=== PATIENT | male | born 1965 | race Caucasian/White ===

== ENCOUNTER 2016-09-10 09:30 | Observation (INO) | payer OTHER ==
[~2016-09-10] VITALS: Ht 190.5 cm; Wt 115.2 kg
--- NOTE | ~2016-09-10 | DS ---
PATIENT'S NAME: TYRON PRAKASH [facility] AGE: 51 Y [address] ROOM: [place] [address] LOCATION: [facility] – [place] ADMIT DATE: 09/10/2016 Discharge Summary DISCHARGE DATE: 09/13/2016 FAMILY PHYSICIAN: Joseph Arnold MD ATTENDING PHYSICIAN: Joseph Arnold FINAL DIAGNOSIS: Cellulitis left face and left naris probable methicillin- resistant Staphylococcus aureus. HOSPITAL COURSE: The patient is a 51-year-old male, who was admitted to the hospital for the above. Please see history and physical. No prior history of MRSA. He had failed outpatient therapy with Bactrim DS twice a day for 3 days prior to admission. He was placed on IV vancomycin without apparent consequence and his infection is defervescing nicely. He is dismissed to home today to finish up with Bactrim DS 1 twice a day and see me in the office in a couple of days. He is dismissed otherwise on the med list shown. If he has fever, chills, or increasing pain and swelling, the patient is to be seen earlier. MD RADHA BADILLO/ben /[id number] d: 09/14/16 0001 t: 09/15/16 0715, DISCHARGE SUMMARY
--- NOTE | 2016-09-10 12:22 | NUR ---
Patient is 51 yo male admitted this am from Dr. Arnold office. Patient states he noticed Tuesday he had what he thought was an infected hair in his left nostril. he went to the DR. on Tuesday as it was worse, was started on antibiotics, Bactrim that day so has been on that for 2 days. this am he felt it was worse, there was more swelling and especially pain and pressure in his left nostril, sinus area. and went to see Dr. Arnold. pt does have hx of MRSA infection in a finger in 2012. Saline lock is started in left forearm with 20 ga intracath without diff. on 2nd attempt. pt kaela well. Education is given as documented. patient denies questions. pneumatics are on bilat calves, patient kaela well. call light is within reach. patient denies needs. Report is given to SHIRA Tanner.
[2016-09-10] MEDS ORDERED: ALEVE220 MG PO (12:32)
[2016-09-10] MEDS ORDERED: DEXILANT60 MG PO (12:32)
[2016-09-10] MEDS ORDERED: CLARITIN D 24HR1 TAB PO (12:33)
[2016-09-10] MEDS ORDERED: THERAGRAN-M1 TAB PO (12:33)
[2016-09-10 14:04] LABS: BASOPHIL % 0.3 %; EOSINOPHIL # 0.1 K/uL (0.0-0.5); EOSINOPHIL % 1.6 %; HEMATOCRIT 42.4 % (37.0-53.0); HEMOGLOBIN 14.7 g/dL (12.0-17.0); IMMATURE GRANULOCYTE % 0.3 %; LYMPHOCYTE % 14.8 %; MCH 30.2 pg (27.0-34.0); MCHC 34.7 gm/dL (32.0-36.5); MCV 87.1 fl (83.0-98.0); MONOCYTE # 0.6 K/uL (0.0-1.0); MONOCYTE % 7.9 %; MPV 9.7 fl (9.4-12.4); NEUTROPHIL # (ANC) 5.2 K/uL (1.4-9.0); NEUTROPHIL % 75.1 %; NRBC % 0 /100WBC (0-0.00); PLATELET COUNT 248 K/uL (150-450); RBC 4.87 M/uL (4.00-6.00); RDW-CV 12.5 % (11.9-14.6); WBC 6.9 K/uL (4.0-11.0)
[2016-09-10 14:23] LABS: ALK PHOS 59 IU/L (33-138); ALT 46 IU/L (12-78); ANION GAP 13.1 (10.0-19.0); AST 30 IU/L (10-40); BLOOD UREA NITROGEN 12 mg/dL (6-24); CALCIUM 8.6 mg/dL (8.5-10.5); CHLORIDE 107 mMol/L (96-110); CO2 25 mMol/L (22-32); CREATININE 1.2 mg/dL (0.6-1.3); ESTIMATED GFR (MDRD EQUATION) > 60; POTASSIUM 4.1 mMol/L (3.7-5.1); SODIUM 141 mMol/L (135-145); TOTAL BILIRUBIN 0.8 mg/dL (0.0-1.5); TOTAL PROTEIN 7.3 g/dL (6.0-8.4)
--- NOTE | 2016-09-10 17:31 | NUR ---
Significant event: Patient is alert and oriented x3. VSS. on room air. has iv to left forearm, saline locked. has edema and small amount of redness to left side of face and nose. Ambulates independently. regular diet. [place] tab x2 given today. Has sleep apnea, uses CPAP, has his from home. Red rashy like area to chest that comes and goes. Cooperative with cares.
--- NOTE | 2016-09-11 03:45 | NUR ---
Patient alert and oriented. Independent with transfers. Took 2 [place] 0133 for pain in his face. Check is slightly red and swollen. Has a small sore in the L) nostril. Has been using an ice pack to help relieve the pain. Does have a history of MRSA in a finger. Saline lock in the L) forearm, has been running antibiotics. Pleasant and cooperative with cares.
--- NOTE | 2016-09-11 15:05 | NUR ---
Shift Summary: Patient is alert and oriented x3. Independent with transfers. Took 2 [place] around 1200 for pain in his face. Cheek is red and slightly swollen. Has a history of MRSA. Contact precautions taken off unless sore continually drains on nose. IV Vanco running in left forearm. Started at 1430. Pleasant and cooperative with cares. Follow Up: Continue to monitor.
--- NOTE | 2016-09-11 19:44 | NUR ---
I HAVE REVIEWED AND AGREE WITH CHARTING DONE BY SN JANENE.
--- NOTE | 2016-09-12 05:40 | NUR ---
Significant Event: A/O X3 AND COOPERATIVE WITH CARES. C/O FACIAL/JAW PAIN AND GAVE 2 [place] AT 1930 WITH RELIEF NOTED. ALSO GAVE ICE PACK WHICH ALSO HELPED. DOES STILL HAVE SOME SWELLING TO FACE. NO DRAINAGE NOTED AROUND NOSE. IV TO L) FA FLUSHES BUT NO BLOOD RETURN. FLIGHT NURSE PLACED NEW IV TO R) WRIST. VSS AND AFEBRILE. Follow up:
--- NOTE | 2016-09-12 10:29 | NUR ---
(-)MST; NO SIG. WT LOSS. PO INTAKE 75-100%. BMI: 31.7. WILL ASSIST NEEDED.
--- NOTE | 2016-09-12 17:45 | NUR ---
Significant Event: PT HAS SLIGHT PINK AREA UNDER LEFT NOSTRIL WITH SMALL AMT OF SWELLING/INDURATION. LEFT CHEEK IS SOFT. PT CONTINUES TO GET IVAB, SL BETWEEN MEDS. PT IS UP INDEPENDENTLY IN THE ROOM. HE HAS DENIED NEED FOR PAIN MEDICATION. VSS, AFEBRILE. Follow up: PROBABLE DISMISSAL TOMORROW.
--- NOTE | 2016-09-13 07:51 | NUR ---
Significant Event: A/O X3 AND COOPERATIVE WITH CARES. DENIES PAIN. SWELLING AND REDNESS AROUND NOSE HAVE DECREASED. PATIENT IS UP INDEPENDENTLY. IV'S TO L) FA AND R) WRIST BOTH FLUSH WELL. CONTINUES ON IV ANTIBIOTICS. SLEPT WELL THROUGH NIGHT. NO OTHER COMPLAINTS VOICED. Follow up:
[2016-09-13] MEDS ORDERED: BACTRIM DS1 TAB PO (08:38)
--- NOTE | 2016-09-13 09:48 | NUR ---
Introduced self/role to patient. Lives in [place] with his , plans to drive himself home today once dismissed. He had no needs or barriers for discharge. Wrote my name on his marker board.
--- NOTE | 2016-09-13 15:10 | NUR ---
D: Orders received for the patient to be discharged today to home after afternoon Vancomycin dose is given, currently infusing at this time. I: Dismissal instructions were prepared and reviewed with the patient virtually. The following information was discussed including Micah teaching sheets provided: Discharge instructions for Cellulitis, Bactrim DS, Guidelines for patient to be cleared of MRSA diagnosis, and Preventing DVT. No new prescriptions. Will follow up with Dr. Arnold in 1 week. R: The patient verbalized understanding of the dismissal education at the time of teaching with no further questions at this time. P: The above information was shared with the primary nurse and the charge nurse that the patient discharge education was completed. The patient is ready for discharge to the front door via wheel chair after IV vancomycin is done infusing and IV is discontinued.
--- NOTE | 2016-09-13 17:41 | NUR ---
Dismissal Note: Independent in room. Denies pain. Voids without difficulty. Bilateral IVs d/cd. Dismissed to home. Micah education and dismissal instructions provided by Virtual nurse.
== END 2016-09-13 16:10 | disposition disaster alternative care site (69) ==
LOC: GMSU 10:26
PROVIDERS: ADMIT Family Medicine
DX: L03.211 Cellulitis of face (principal); B96.89 Other specified bacterial agents as the cause of diseases classified elsewhere; K21.9 Gastro-esophageal reflux disease without esophagitis; Z86.73 Personal history of transient ischemic attack (TIA), and cerebral infarction without residual deficits
CPT/HCPCS: G0378; G0379; J3370; J7050